=== PATIENT | female | born 1985 | race Two or more races ===

== ENCOUNTER 2016-09-25 07:50 | Emergency (ER) | payer SELFPAY ==
[~2016-09-25] VITALS: Wt 59.0 kg
[~2016-09-25 07:50] MED LIST: CALC600T5 PO; CHOL100062 PO; FERR240T9 PO; PRENAT PO
[2016-09-25] MEDS ORDERED: NAPR-260 PO (08:26)
[2016-09-25] MEDS ORDERED: AMO500 PO (08:26)
[2016-09-25 08:36] VITALS: TEMP 98.2
--- NOTE | 2016-09-25 09:17 | ERD ---
ER Documentation Chief Complaint Date/Time DATE: 09/25/16 TIME: 09:16 Chief Complaint EAR PAIN AND SORE THROAT WITH COUGH FOR 1 WEEK./ HPI 31-year-old female otherwise healthy complains of cough, congestion for 1 week followed by right ear pain for the past 3 days. She denies any fevers or trouble breathing. She has had a sick contact, her daughter who is also had URI symptoms. No vomiting, diarrhea, rashes. Denies recent travel. ROS All systems reviewed and are negative except as per history of present illness. Medications Home Meds Active Scripts Naproxen* (Naprosyn*) 500 Mg Tablet, 500 MG PO BID, #30 TAB Prov:WENDY BARAHONA PA-C 09/25/16 Amoxicillin* (Amoxicillin*) 500 Mg Cap, 500 MG PO TID for 10 Days, CAP Prov:WENDY BARAHONA PA-C 09/25/16 Reported Medications Cholecalciferol* (Vitamin D3*) 1,000 Unit Tablet, 1000 UNIT PO DAILY, TAB 04/01/15 Calcium Carbonate (CALCIUM) 600 Mg Tablet, 600 MG PO DAILY 04/01/15 Ferrous Gluconate (Iron) 1 Tab Tablet, 1 TAB PO DAILY 04/01/15 Multivit/Min/Fol Ac/Iron/Pren* ( S*) 1 Tab Tab, 1 TAB PO DAILY, TAB 04/01/15 Allergies Allergies: Coded Allergies: No Known Allergy (Unverified , 01/14/15) PMhx/Soc Medical and Surgical Hx: pt denies Medical Hx, pt denies Surgical Hx Hx Alcohol Use: No Hx Substance Use: No Hx Tobacco Use: No Physical Exam Vitals Vital Signs Date Time Temp Pulse Resp B/P Pulse Ox O2 Delivery O2 Flow Rate FiO2 09/25/16 08:36 98.2 09/25/16 08:02 98.9 72 20 126/56 96 Physical Exam General: Well-developed, well-nourished. The patient appears in no acute distress. HEENT: Head is normocephalic, atraumatic. No scleral icterus. Oropharynx is clear, there is no exudate, TM on the right side is erythematous, no perforation , otorrhea or discharge, left ear is unremarkable, mastoids are nontender. Neck: Supple. Nontender. No masses. Lungs: Clear to auscultation. Normal air movement. Heart: Regular rate and rhythm. S1 and S2 are normal. No murmurs, gallops, or rubs. Abdomen: Nondistended. Extremities: No clubbing or cyanosis. Moving extremities x 4. No weakness. Neurologic: Alert and oriented 3. No focal deficits. Normal speech and gait. Skin: Normal turgor. No rash or lesions. Procedures/MDM The patient is a 30-year-old female who comes in with an acute upper respiratory infection, presumed viral, pain on the right ear and erythema on the right tympanic membrane is suggestive of acute otitis media. The patient has a differential diagnosis of a viral upper respiratory infection, bacterial upper respiratory infection, bronchitis, pneumonia, pharyngitis, laryngitis, epiglottitis, croup, pneumonia. Patient has a normal pulmonary examination, clear breath sounds, normal pulse oximetry, with no corrective measures needed at this time. Fluids, rest, antipyretics were encouraged. Departure Diagnosis: Primary Impression: Otitis media, right Additional Impression: Acute URI Condition: Good Patient Instructions: Otitis Media, Abx Tx [Child], Uri, Viral, No Abx (Adult) Additional Instructions: Call your primary care doctor TOMORROW for an appointment during the next 1-2 days.See the doctor sooner or return here if your condition worsens before your appointment time. WENDY BARAHONA PA-C Sep 25, 2016 09:17
== END 2016-09-25 08:36 | disposition home or self-care (01) ==
LOC: FTE 07:50
DX: H66.91 Otitis media, unspecified, right ear (principal); J06.9 Acute upper respiratory infection, unspecified
CPT/HCPCS: 99283

== ENCOUNTER 2018-02-14 03:38 | Emergency (ER) | END 2018-02-14 06:16 | disposition home or self-care (01) ==